=== PATIENT | female | born 1950 | race Caucasian/White ===

== ENCOUNTER → 2022-12-22 | Outpatient (CLI) | payer MEDICARE | END | disposition home or self-care (01) | LOC: LABWHC1 11:02 | PROVIDERS: ATTEND Orthopaedic Surgery | DX: Z01.812 Encounter for preprocedural laboratory examination (principal); M16.11 Unilateral primary osteoarthritis, right hip; F17.200 Nicotine dependence, unspecified, uncomplicated | CPT/HCPCS: 86850; 86900; 86901 ==

== ENCOUNTER 2022-12-24 12:02 | Day surgery (SDC) | payer MEDICARE, OTHER ==
[2022-12-19 10:06] VITALS: BMI 23.3
[~2022-12-24 12:02] MED LIST: ACETAMINOPHEN TAB 500 MG TAB PO PRN; DEXAMETHASONE SOD PHOSPHATE 10 MG/ML 1 ML VIAL IV PRN; DOCUSATE 100 MG CAP PO PRN; FAMOTIDINE 20 MG/2 ML VIAL IVP PRN; HYDROmorphone 0.5 MG/0.5 ML SYRINGE IVP PRN; KETOROLAC 15 MG/ML 1 ML VIAL IVP PRN; MIDAZOLAM 2 MG/2 ML VIAL IV PRN; ONDANSETRON 4 MG/2 ML VIAL IVP PRN; ROPIVACAINE/EPI/CLONIDINE/KET 50 ML SYRINGE MISCELLANE PRN; TRANEXAMIC ACID IN NACL,ISO-OS 1,000 MG in SALINE 1 100ML.BAG IV PRN; TRANEXAMIC ACID IN NACL,ISO-OS 1,000 MG in SALINE 1 100ML.BAG IVPB PRN; VANCOMYCIN 1,000 MG in SODIUM CHLORIDE 0.9% 250 ML IVPB PRN; oxyCODONE ER 10 MG TAB.ER.12H PO PRN
[2022-12-24] MEDS: LACTATED RINGERS 1,000 ML IV SCH ×2 (12:59→21:46)
[2022-12-24] MEDS ORDERED: MIDAZOLAM 2 MG/2 ML VIAL IVP ONE (13:18)
[2022-12-24] MEDS ORDERED: LIDOCAINE 2% INJ 20 MG/ML (2 ML VIAL) ONE (13:48)
[2022-12-24] MEDS ORDERED: DEXAMETHASONE SOD PHOSPHATE 4 MG/ML 1 ML VIAL ONE (13:48)
[2022-12-24] MEDS ORDERED: HYDROmorphone (PF) 1 MG/ML ONE (13:48)
[2022-12-24] MEDS ORDERED: ROPIVACAINE 5 MG/ML 30 ML VIAL ONE (13:48)
[2022-12-24] MEDS ORDERED: TRANEXAMIC ACID IN NACL,ISO-OS 1,000 MG/100 ML BAG ONE (13:48)
[2022-12-24] MEDS ORDERED: NEOSTIGMINE 1 MG/ML 10 ML VIAL ONE (13:48)
[2022-12-24] MEDS ORDERED: GLYCOPYRROLATE 0.2 MG/ML 2 ML VIAL ONE (13:48)
[2022-12-24] MEDS ORDERED: ROCURONIUM 10 MG/ML (5 ML VIAL) IV ONE (13:48)
[2022-12-24] MEDS ORDERED: PROPOFOL 10 MG/ML 20 ML VIAL IV ONE (13:48)
[2022-12-24] MEDS ORDERED: fentaNYL (PF) 50 MCG/ML 2 ML AMP ONE (13:48)
[2022-12-24] MEDS ORDERED: ePHEDrine 50 MG/ML 1 ML VIAL ONE (13:48)
[2022-12-24] MEDS ORDERED: SUCCINYLCHOLINE CHLORIDE 200 MG/10 ML VIAL IV ONE (13:48)
[2022-12-24] MEDS ORDERED: LACTATED RINGERS 1,000 ML IV ONE ×2 (16:16→17:45)
[2022-12-24] MEDS ORDERED: NALOXONE 0.4 MG/ML 1 ML VIAL IV PRN (16:23)
[2022-12-24] MEDS ORDERED: hydrOXYzine pamoate 25 MG CAP PO PRN (16:33)
[2022-12-24] MEDS ORDERED: HYDROcodone/APAP 5-325MG 1 EACH TAB PO PRN ×2 (16:33)
[2022-12-24] MEDS ORDERED: ONDANSETRON 4 MG/2 ML VIAL IVP PRN (16:33)
[2022-12-24] MEDS ORDERED: HYDROmorphone 0.5 MG/0.5 ML SYRINGE IVP PRN ×3 (16:33)
--- NOTE | 2022-12-24 16:44 | P.OP ---
Date of Procedure: 12/24/22 Preoperative Diagnosis: 1. Severe right hip osteoarthritis 2. History of prior smoking, quit prior to surgery Postoperative Diagnosis: Same Procedure(s) Performed: Right direct anterior total hip arthroplasty Implants: 1. [place] Trident II Acetabular Cup, Size #50 2. Stevan Accolade C Size #3 Femoral Stem, Standard Offset 3. Biolox delta femoral head, 36 mm, - 5 neck Anesthesia: MICHEL, regional Surgeon: Jorge Sanchez Head Doffer #1: Desi Gilbert Estimated Blood Loss (ml): 300 IV fluids (ml): 1,000 Pathology: none sent Condition: stable Disposition: PACU Indications for Procedure: I had a long discussion with the patient in the office on the potential risks and complications of an elective total hip replacement through a direct anterior approach. Risks discussed include, but are certainly not limited to, risks from anesthesia, superficial infection requiring local wound care or antibiotics, deep eliane-prosthetic joint infection and the treatment required to eradicate infection, intraoperative fracture, postoperative periprosthetic fracture, damage to local blood vessels or nerves particularly the lateral femoral cutaneous nerve, delayed wound healing requiring local wound care or possibly surgical debridement, hip dislocation, leg length discrepancy, soft tissue irritation around the total hip implant such as iliopsoas tendinitis or trochanteric bursitis, wear and osteolysis from the implants, squeaking or audible noises, groin pain, thigh pain, heterotopic ossification, stiffness, aseptic loosening of the implants, dissatisfaction with surgical outcome, need for revision surgery, DVT, PE, swelling of the operative extremity, acute coronary event, stroke, failure to thrive, and possibly loss of life or limb. The patient understands that while these are the most common complications after an elective hip replacement there are certainly other less common complications possible. They were given ample time to ask questions regarding the potential complications of a hip replacement. Following our discussion the patient provided their verbal and written consent to go forward with an elective total hip replacement. The patient has a history of smoking cigarettes. I to surgery we discussed that this was an increased risk for wound healing issues and periprosthetic joint infection. I recommended smoking cessation. The patient states that she quit smoking prior to surgery. She understands her increased risk if she resumes smoking in the perioperative period. Operative Findings: Severe right hip osteoarthritis Description of Procedure: The patient was identified in the preoperative holding area and the correct hip was marked with my initials. I reviewed the procedure and consent with the patient. All of their questions were answered. The patient was then brought back into the operating room by anesthesia. While on the [facility] anesthesia was administered by the anesthesia team. Preoperative antibiotics and tranexamic acid were also given. After the patient was under anesthesia I examined their ankles to determine their preoperative leg length discrepancy. The skin over the anterior aspect of the hip was shaved to remove hair over the site of planned incision. Both feet and ankles were padded with webril and boots for the [place] were applied. The patient was then carefully transferred onto the [place] table. A perineal post was immediately placed. The arms were placed on arm holders and were well-padded. Both boots were secured to the spars on the [place] table. The patient was positioned so that the pelvis was centered over the post. Nonsterile drapes were applied. A timeout was performed identifying the correct patient, operative extremity, and procedure. At this point fluoroscopy was brought in to take preoperative images of the pelvis and operative hip. Using the standing AP pelvis from the office as a template, a comparable image was obtained with fluoroscopy. A metallic bar was used to create a bi-ischial line for use as a reference to leg length adjustments during the procedure. Global offset was also measured on both the operative and nonoperative leg. Fluoroscopy was then brought out and a pre-scrub using a chlorhexidine scrub brush was performed. The operative limb was then prepped and draped in the standard sterile fashion. An anterior longitudinal incision was made lateral and distal to the ASIS. The skin and subcutaneous tissues were incised sharply. The underlying tensor fascia was identified and incised in its midportion. The fascia was dissected free from the underlying muscle and the muscle belly was retracted. A blunt tipped cobra retractor was placed over the superior neck under the muscle fibers of the gluteus minimus. The deep enveloping fascia of the tensor was incised. The anterior leash of vessels were then identified and cauterized. The fascia between the rectus and the capsule was then incised and the pre-capsular fat was excised. A second Cobra was placed inferior to the neck. The interval between the rectus and iliocapsularis and the hip capsule was developed and a retractor was placed carefully over the anterior rim of the acetabulum. A T-shaped anterior capsulotomy was performed. The superior capsular leaflet was left in place in the inferior capsular flap was excised. The Cobra retractors were placed intracapsularly. We then made a femoral neck osteotomy according to preoperative and intraoperative templating and confirmed the level of the osteotomy using fluoroscopic imaging. The femoral head was removed, passed off to the back table, and sized. The superior capsular flap was excised. Retractors were placed circumferentially exposing the acetabulum. We then circumferentially debrided the acetabulum free of labrum and osteophytes. The pulvinar was removed to fully visualize the cotyloid fossa. We then sequentially reamed to achieve peripheral fit and excellent bleeding subchondral bone. The socket was thoroughly irrigated. The acetabular component was impacted into the appropriate position using fluoroscopy to guide version, inclination, and depth of insertion taking care to have a comparable image of the AP pelvis to the standing image taken in the office. An excellent press-fit was achieved and final position was confirmed using fluoroscopy. The press fit was augmented with bony cancellus dome screws. The liner was then impacted into the socket. Attention was then turned to the femur. The remnant dorsal lateral capsule was excised. The short external rotators were visible and protected. A bone hook was used to confirm appropriate translation of the trochanter away from the acetabulum. The leg was then extended and adducted and the bone hook was used to elevate the femur for broaching. On inspection of the patient's proximal femur, they appeared to have poor bone quality so I elected to proceed with cemented fixation of the femoral component. A box osteotome and blunt tipped canal sound was then utilized to gain access to the femoral canal. We then sequentially broached the femur in appropriate anteversion until torsional stability was achieved and the implant was felt to have reached the appropriate size to allow trialing. The neck cut was brought flush to the trial broach with a calcar planar. A trial neck and head were then placed onto the broach and the hip was atraumatically reduced under direct visualization. External rotation to 90 was performed to assess stability. Fluoroscopy was brought in. An AP and lateral fluoroscopic image of the proximal femur was obtained to assess position and fill of the trial broach. An AP of the pelvis was then obtained and matched to the preoperative image taken. A bi-ischial bar was then placed and measurements were taken to assess changes in length and offset. The hip was then carefully dislocated, the proximal femur was exposed, and the trial implants were removed. The proximal femur was then prepared for cementing. The canal was thoroughly irrigated with pulsatile lavage to remove blood and marrow contents. A cement restrictor was placed to a depth just distal to the tip of the final implant. Epinephrine-soaked gauze was then packed into the proximal femur. 2 bags of cement were then mixed using a centrifuge and placed into a cement gun. Anesthesia was notified that cementing was about to commence to make sure the patient was appropriately ventilated and hydrated. Once the cement had reached appropriate consistency, the cement gun was used to fill the canal in a retrograde fashion starting at the restrictor. Cement was then pressurized into the canal with a blue tipped auto vinyl top installer. The stem was then carefully introduced into the cement taking care to guide the implant into appropriate version. The stem was held in position until the cement had fully set. All extra cement was removed while the cement was hardening. The trunnion was cleansed and the final head was tapped into place to engage the Tong taper. The acetabulum was irrigated and visualized to be free of debris. The hip was carefully reduced. Stability was checked clinically with external rotation to 90 and there was no evidence of instability. Final fluoroscopic images were taken. The wound was then thoroughly irrigated and soaked with a dilute Betadine rinse for 3 minutes. 3 L of sterile saline was irrigated through the wound using pulsatile lavage. Local anesthetic cocktail was injected into the soft tissues around the surgical field. A deep drain was placed. The wound was then closed in layers. A sterile dressing was placed over the surgical incision and drain site. The drapes were taken down and the patient was carefully transferred off of the [place] table. Following removal of the boots the leg lengths felt acceptable. The patient was then taken to recovery room having tolerated the procedure well. Desi Gilbert PA-C was required as a skilled salon assistant for patient positioning, surgical exposure, retraction, placement of implants, and closure of the surgical wound. PLAN: The patient can weight-bear as tolerated on the operative extremity. 2 doses of postoperative antibiotics. DVT prophylaxis with aspirin 81 mg twice a day based on preoperative risk stratification. Physical therapy for gait training. Discontinue drain postoperative day #1 if output is less than 100 mL per shift. Patient was strongly encouraged to continue smoking cessation in the perioperative period. Due to her history of smoking she will be given doxycyc line 100 mg twice a day for 2 weeks.
--- NOTE | 2022-12-24 17:37 | P.ANPRN ---
Procedure Note - Anesthesia - Nerve Block Performed Right Pavan Single Time Out Performed: Yes Date of Procedure: 12/24/22 Procedure Start Time: : Procedure Stop Time: Location of Patient: PreOp Indication: Acute Post-Operative Pain, Requested by Surgeon Sedation Type: Sedate with meaningful contact maintained Preparation: Sterile Prep, Sterile Dressing Position: Supine Catheter: None Needle Types: Facet Needle Gauge: 20 Ultrasound used to visualize needle placement: Yes Ultrasound used to observe medication spread: Yes Injectate: 0.5% Ropivacaine (see comment for volume) (30 ml + decadron 4 mg) Blood Aspirated: No Pain Paresthesia on Injection Noted: No Resistance on Injection: Normal Image Stored and Saved: Yes Events: Uneventful and Well Tolerated
--- NOTE | 2022-12-24 18:07 | XR ---
EXAMINATION TYPE: XR Hip Limited RT DATE OF EXAM: 12/24/2022 COMPARISON: NONE HISTORY: Hip surgery TECHNIQUE: Multiple fluoroscopic images FINDINGS: 48 seconds of fluoroscopy time was recorded. A series of images show placement of a new rig ht hip prosthesis in anatomic position. No complicating process seen. IMPRESSION: Right hip prosthesis with no complicating process seen.
[2022-12-24] MEDS ORDERED: SENNOSIDES-DOCUSATE SODIUM 1 EACH TAB PO SCH (21:00)
[2022-12-24] MEDS: ASPIRIN 81 MG PO SCH (21:46)
[2022-12-25] MEDS: LACTATED RINGERS 1,000 ML IV SCH ×2 (02:49)
[2022-12-25] MEDS: ASPIRIN 81 MG PO SCH (07:14)
--- NOTE | 2022-12-25 07:34 | FL ---
Intraoperative/procedural fluoroscopic services were provided. Total fluoroscopy time is 48 seconds w ith a total of 0 submitted images to PACS. Please see the operative/procedural note for further detai ls. DAP: 1.53
--- NOTE | 2022-12-25 08:27 | P.DS ---
Providers Expected date of discharge: 12/25/22 Attending physician: Jorge Sanchez Consults: 12/24/22 18:00 Consult Physician Urgent Consulting Provider: Joseph Orellana Consult Reason/Comments: medical management Do you want consulting provider notified?: Yes Primary care physician: Desi Gilbert, [facility] Course: This is a 72-year-old female who has been followed in our office by Dr. Sanchez for continued complaints of right hip pain due to right hip osteoarthritis. Treatment options were discussed, and patient elected to undergo a right direct anterior total hip arthroplasty. Patient was seen pre-operatively by Dr. Bone and cleared for surgery. Patient underwent a right direct anterior total hip arthroplasty on 12/24/[address] Sanchez. The procedure was performed without complication or sequelae. The patient is doing fairly well postoperatively. Vital signs and labs are stable on postoperative day #1. Patient was examined bedside this morning with Dr. Sanchez. Patient states she is overall doing well and the pain in her right hip is well-controlled. She has been ambulating with a walker with minimal assistance. Patient is comfortable being discharged home today. Patient has no new complaints this morning. On examination, the patient is sitting up in bed in no apparent distress. She is alert and orientated 3. On inspection of the right hip, there is a clean, dry, intact surgical dressing in place. Hemovac drain is removed bedside during examination. Motor and sensory function is intact of the right lower extremity. Femoral nerve function intact. The dorsalis pedis pulse is easily palpable, the right lower extremity is warm and well perfused with brisk capillary refill. Calf is soft and non-tender to palpation. Patient is discharged home with home health care today in good condition, pending medical clearance. Patient will follow-up with Dr. Sanchez in the office in 2 weeks at [facility]. Please see med rec for accurate list of discharge medication. Plan - Discharge Summary Discharge Rx Participant: No New Discharge Prescriptions: New Docusate [Colace] 100 mg PO BID #60 capsule RX: Doxycycline Monohydrate 100 mg PO BID 14 Days #28 cap RX: Omeprazole 40 mg PO DAILY 30 Days #30 cap RX: Diclofenac Sodium [Voltaren] 75 mg PO BID 30 Days #60 tab RX: Aspirin 81 mg PO BID 30 Days #60 tab HYDROcodone/APAP 5-325MG [[place] 5-325] 1 - 2 tab PO Q6HR PRN 7 Days #32 tab PRN Reason: Pain No Action Atorvastatin [Lipitor] 10 mg PO HS Aspirin [Adult Low Dose Aspirin EC] 81 mg PO DAILY Acetaminophen [Tylenol Extra Strength] 100 mg PO QID Multivitamins, Thera [Multivitamin (formulary)] 1 tab PO DAILY RX: amLODIPine BESYLATE 5 mg PO QAM Donepezil HCl [Aricept] 10 mg PO HS Citalopram Hydrobromide [CeleXA] 30 mg PO QAM Discharge Medication List Acetaminophen [Tylenol Extra Strength] 100 mg PO QID 12/19/22 [History] Aspirin [Adult Low Dose Aspirin EC] 81 mg PO DAILY 12/19/22 [History] Atorvastatin [Lipitor] 10 mg PO HS 12/19/22 [History] Citalopram Hydrobromide [CeleXA] 30 mg PO QAM 12/19/22 [History] Donepezil HCl [Aricept] 10 mg PO HS 12/19/22 [History] Multivitamins, Thera [Multivitamin (formulary)] 1 tab PO DAILY 12/19/22 [History] RX: amLODIPine BESYLATE 5 mg PO QAM 12/19/22 [History] Docusate [Colace] 100 mg PO BID #60 capsule 12/25/22 [Rx] HYDROcodone/APAP 5-325MG [[place] 5-325] 1 - 2 tab PO Q6HR PRN 7 Days #32 tab 12/25/22 [Rx] RX: Aspirin 81 mg PO BID 30 Days #60 tab 12/25/22 [Rx] RX: Diclofenac Sodium [Voltaren] 75 mg PO BID 30 Days #60 tab 12/25/22 [Rx] RX: Doxycycline Monohydrate 100 mg PO BID 14 Days #28 cap 12/25/22 [Rx] RX: Omeprazole 40 mg PO DAILY 30 Days #30 cap 12/25/22 [Rx] Follow up Appointment(s)/Referral(s): [facility] [[facility]] - 1-2 Days ([facility] will call you to schedule your in home physical therapy visits. ) Jorge Sanchez MD [Medical Doctor] - 2 Weeks Activity/Diet/Wound Care/Special Instructions: Weight bear to tolerance on operative extremity with a walker. Keep operative dressing in place until follow-up in the office. Call the office if dressing becomes saturated or falls off. May shower over dressing. Take pain medications as prescribed. Take antibiotics as prescribed. Take aspirin 81mg twice a day x 4 weeks for blood clot prevention. Follow-up in the office in two weeks at [facility]. Call the office with any questions or concerns, Discharge Disposition: HOME WITH HOME HEALTH SERVICES
[2022-12-25 10:01] LABS: Basophils # (A) 0.02 X 10*3/uL (0.00-0.10); Basophils % (A) 0.2 %; Eosinophils # (A) 0 X 10*3/uL (0.04-0.35); Eosinophils % (A) 0 %; HCT 26.5 % (37.2-46.3); HGB 8.5 g/dL (12.0-15.0); Immature Grans, Automated 0.6 %; Lymphocytes # (A) 1.02 X 10*3/uL (0.90-5.00); Lymphocytes % (A) 7.8 %; MCH 30.7 pg (27.0-32.0); MCHC 32.1 g/dL (32.0-37.0); MCV 95.7 fL (80.0-97.0); Mean Platelet Volume 10.3 fL (9.5-12.2); Monocytes # (A) 0.92 X 10*3/uL (0.20-1.00); NRBC Per 100 WBC 0 /100 WBCS (0.0-0.0); Neutrophils % (A) 84.4 %; Platelet Count 275 X 10*3/uL (140-440); RBC 2.77 X 10*6/uL (4.10-5.20); RDW 16.2 % (11.5-14.5); WBC 13.14 X 10*3/uL (4.50-10.00)
[2022-12-25 10:54] VITALS: RESP 17
[2022-12-25 13:54] VITALS: BP 133/56; PULSE 61; TEMP 98.4
== END 2022-12-25 14:17 | disposition home health service (06) ==
LOC: OR 12:02 → EDSTATUS 12:30 → 4SSUR 16:16 → OR 12-25 14:17
PROVIDERS: ATTEND Orthopaedic Surgery
DX: M16.11 Unilateral primary osteoarthritis, right hip (principal); G89.18 Other acute postprocedural pain; F17.200 Nicotine dependence, unspecified, uncomplicated; F10.20 Alcohol dependence, uncomplicated; I10 Essential (primary) hypertension; F32.A Depression, unspecified; Z88.1 Allergy status to other antibiotic agents; Z98.890 Other specified postprocedural states; Z79.899 Other long term (current) drug therapy; Z79.1 Long term (current) use of non-steroidal anti-inflammatories (NSAID)
CPT/HCPCS: 27130; 94760; 97161; 97166; 64447; 76942; 85025; 73501; C1776; C1713; J2250; J3370; J1100; J0690 ×2; J2405; J1885

== ENCOUNTER → 2023-02-26 | Outpatient (CLI) | payer MEDICARE, OTHER ==
--- NOTE | 2023-02-26 16:02 | US ---
EXAMINATION TYPE: US venous doppler duplex LE RT DATE OF EXAM: 02/26/2023 3:56 PM COMPARISON: NONE CLINICAL INDICATION: Female, 72 years old with history of M25.551 PAIN RT HIP,M25.561 PAIN RT KNEE; R ight leg swelling s/p right total hip SIDE PERFORMED: Right TECHNIQUE: The lower extremity deep venous system is examined utilizing real time linear array sonog constanza with graded compression, doppler sonography and color-flow sonography. VESSELS IMAGED: Common Femoral Vein Deep Femoral Vein Greater Saphenous Vein * Femoral Vein Popliteal Vein Small Saphenous Vein * Proximal Calf Veins Posterior tibial veins (* superficial vessels) Right Leg: Negative for DVT Results called to Leida at 's office at time of exam IMPRESSION: No evidence for DVT within the right lower extremity.
== END | disposition home or self-care (01) ==
LOC: RADUSWWP 15:10
PROVIDERS: ATTEND Orthopaedic Surgery
DX: M25.551 Pain in right hip (principal); M25.561 Pain in right knee; F17.200 Nicotine dependence, unspecified, uncomplicated; R60.9 Edema, unspecified; Z96.641 Presence of right artificial hip joint; Z47.1 Aftercare following joint replacement surgery
CPT/HCPCS: 86140

== ENCOUNTER 2024-02-16 10:53 | Day surgery (SDC) | payer MEDICARE, OTHER ==
[2024-02-11 10:14] VITALS: BMI 24.5
[~2024-02-16 10:53] MED LIST changes: -ACETAMINOPHEN TAB 500 MG TAB PO PRN; -DEXAMETHASONE SOD PHOSPHATE 10 MG/ML 1 ML VIAL IV PRN; -DOCUSATE 100 MG CAP PO PRN; -FAMOTIDINE 20 MG/2 ML VIAL IVP PRN; -HYDROmorphone 0.5 MG/0.5 ML SYRINGE IVP PRN; -KETOROLAC 15 MG/ML 1 ML VIAL IVP PRN; +LACTATED RINGERS 1,000 ML IV SCH; +LIDOCAINE 1% (10MG/ML) FOR IV START INTRADERMA PRN; -MIDAZOLAM 2 MG/2 ML VIAL IV PRN; -ONDANSETRON 4 MG/2 ML VIAL IVP PRN; -ROPIVACAINE/EPI/CLONIDINE/KET 50 ML SYRINGE MISCELLANE PRN; -TRANEXAMIC ACID IN NACL,ISO-OS 1,000 MG in SALINE 1 100ML.BAG IV PRN; -TRANEXAMIC ACID IN NACL,ISO-OS 1,000 MG in SALINE 1 100ML.BAG IVPB PRN; -VANCOMYCIN 1,000 MG in SODIUM CHLORIDE 0.9% 250 ML IVPB PRN; -oxyCODONE ER 10 MG TAB.ER.12H PO PRN
[2024-02-16] MEDS: IV FLUID CONTINUATION 1,000 ML IV ONE (12:30)
[2024-02-16] MEDS ORDERED: PROPOFOL 10 MG/ML 20 ML VIAL IV ONE (12:30)
[2024-02-16] MEDS ORDERED: GLYCOPYRROLATE 0.2 MG/ML 2 ML VIAL ONE (12:30)
[2024-02-16 12:31] VITALS: RESP 16; TEMP 97
--- NOTE | 2024-02-16 12:52 | P.PCN ---
Date of Procedure: 02/16/24 Procedure(s) Performed: BRIEF HISTORY: Patient is a 73-year-old pleasant white scheduled for an elective colonoscopy as a part of evaluation of intermittent rectal bleeding and chronic diarrhea of several months duration. She also has family history of colon cancer diagnosed in her mother at age 73. PROCEDURE PERFORMED: Colonoscopy with biopsy. PREOPERATIVE DIAGNOSIS: Chronic diarrhea/intermittent rectal bleeding and family history of colon cancer. IV sedation per Anesthesia. PROCEDURE: After informed consent was obtained, the patient, was brought into the endoscopy unit. IV sedation was administered by Anesthesia under continuous monitoring. Digital rectal examination was normal. Initially the Olympus CF-160 flexible video colonoscope was then inserted in the rectum, gradually advanced into the cecum without any difficulty. Careful examination was performed as the scope was gradually being withdrawn. Ileocecal valve and the appendiceal orifice were visualized and appeared normal. Prep was excellent. Mucosa of the cecum, ascending colon, appeared normal. In the transverse colon there was a 5 mm polyp that was removed by cold biopsy. Transverse colon, descending colon, sigmoid colon, and rectum appeared normal. Moderate sigmoid diverticulosis seen. Random biopsies were done from the ascending and descending colon to rule out microscopic/collagenous colitis. Retroflexion was performed in the rectum and grade 2 internal hemorrhoid were seen. The patient tolerated the procedure well. IMPRESSION: 5 mm transverse colon polyp status post removal by cold biopsy Moderate sigmoid diverticulosis Grade 2 internal hemorrhoids RECOMMENDATIONS: Findings of this examination were discussed with the patient as well as her family. She was advised to follow-up with the biopsy results. Advised to use [id number] Imodium as needed. Recommended repeat colonoscopy in 5 years because of the family history of colon cancer..
[2024-02-16 13:30] VITALS: BP 142/70; PULSE 67
== END 2024-02-16 13:29 | disposition home or self-care (01) ==
LOC: ORWHC2ENDO 10:53
PROVIDERS: ATTEND Internal Medicine Gastroenterology
DX: K63.5 Polyp of colon (principal); K62.5 Hemorrhage of anus and rectum; K52.9 Noninfective gastroenteritis and colitis, unspecified; K57.30 Diverticulosis of large intestine without perforation or abscess without bleeding; K64.1 Second degree hemorrhoids; F17.210 Nicotine dependence, cigarettes, uncomplicated; F41.9 Anxiety disorder, unspecified; Z79.899 Other long term (current) drug therapy
CPT/HCPCS: 88305; 45380; J2704